=== PATIENT | male | born 1995 | race Two or more races ===

== ENCOUNTER 2021-01-19 19:36 | Emergency (ER) | payer SELFPAY ==
[~2021-01-19] VITALS: Ht 170.2 cm; Wt 65.0 kg
--- NOTE | 2021-01-19 20:26 | PHYS DOC ---
Past Medical History Additional Past Medical Histor: broke right arm in 3rd grade Past Surgical History: No Surgical History General Adult EDM: Chief Complaint: UPPER EXTREMITY INJURY HPI: HPI: Patient is a 25 year old male who presents with a chief complaint of right elbow pain. Prior to arrival patient was at work fell onto his right upper extremity. Patient had sudden onset of pain. Patient's pain is located in his elbow region. Patient states pain occasionally radiates up to the right shoul [place]. On exam there is some swelling noted at his elbow. He has decreased range of motion of supination and pronation flexion and extension at the elbow due to pain and swelling. No injuries noted patient's right shoulder or right wrist. Patient right upper extremity is neurovascularly intact. Review of Systems: Review of Systems: Review of systems: Constitutional symptoms- No fever, no chills. Eyes- No Discharge, No Visual Loss Respiratory symptoms- No shortness of breath, No wheezing, No Dyspnea on Exertion Cardiovascular Systems; No chest pain, No Palpitations, No syncope Gastrointestinal symptoms: NO abdominal pain, no nausea, no vomiting or diarrhea. Genitourinary symptoms: No dysuria. Musculoskeletal symptoms: No back pain Positive extremity pain. NEUROLOGICAL Symptoms: No headache, no generalized weakness; No focal Weakness Skin: No rash. Heart Score: C/O Chest Pain: N/A Risk Factors: Risk Factors: DM, Current or recent (<one month) smoker, HTN, HLP, family history of CAD, obesity. Risk Scores: Score 0 - 3: 2.5% MACE over next 6 weeks - Discharge Home Score 4 - 6: 20.3% MACE over next 6 weeks - Admit for Clinical Observation Score 7 - 10: 72.7% MACE over next 6 weeks - Early Invasive Strategies Allergies: Allergies: Allergies Coded Allergies Type Severity Reaction Last Updated Verified Penicillins Allergy Intermediate 01/19/21 Yes Physical Exam: PE: General: alert, no acute distress. Skin: warm, dry and intact. HENT: bilateral external ears normal, oropharynx moist, nose normal. Head:: Normocephalic, atraumatic. Neck: Trachea midline. Eyes: EOMI, Normal conjunctiva, No drainage CARDIOVASCULAR: Regular rate and rhythm RESPIRATORY: No respiratory distress Back: Full range of motion. Skin: Warm, dry, no erythema, no rash. MUSCULOSKELETAL: Swelling along the right elbow decreased range of motion flexion extension supination pronation tenderness to palpation along the radial head right upper extremity neurovascularly intact no wrist or shoulder injuries GASTROINTESTINAL: Abdomen soft without rebound or guarding. NEUROLOGICAL: Alert and noted to person, place and time. No neurological deficits observed Psychiatric: Cooperative. Normal judgment Current Patient Data: Vital Signs: Vital Signs Date Time Temp Pulse Resp B/P (MAP) Pulse Ox O2 Delivery O2 Flow Rate FiO2 01/19/21 20:04 73 18 125/60 (81) 97 Room Air 01/19/21 19:56 99.3 99.3 EKG: EKG: [] Radiology/Procedures: Radiology/Procedures: [] Impression: HISTORY: Pain after fall 3 views were taken left elbow. There is displacement of anterior fat pad. There is a radial head fracture best seen on the lateral view. Fracture is mildly displaced. The medial epicondyles of the humerus is either a separate ossification center or there is an old injury. IMPRESSION: 1. Right radial head fracture. Electronically signed by: Nathen Kay MD (01/19/2021 8:55 PM) [facility] Course & Med Decision Making: Course & Med Decision Making Pertinent Labs and Imaging studies reviewed. (See chart for details) [] Discussed patient with orthopedics. Patient placed in a posterior OCL and arm placed in a sling. Patient treated in the ER with Motrin. He was discharged home on Ultram. Patient given orthopedic referral. Mary Disclaimer: Mary Disclaimer: This electronic medical record was generated, in whole or in part, using a voice recognition dictation system. Departure Departure Impression: Primary Impression: Radial head fracture, closed Disposition: 01 HOME / SELF CARE / HOMELESS Condition: STABLE Referrals: NO PCP (PCP) LIVE MURRY DO Patient Instructions: Radial Head Fracture Scripts Tramadol Hcl (ULTRAM) 50 Mg Tablet 1 TAB PO PRN Q6HRS PRN for pain MDD 4 Tablet(s) for 7 Days, #28 TAB 0 Refills Prov: GERRY WERNER DO 01/19/21 GERRY WERNER I DO Jan 19, 2021 20:26
[2021-01-19] MEDS ORDERED: IBUPROFEN 200 MG TABLET. PO ONE (20:30)
--- NOTE | 2021-01-19 20:58 | RAD ---
Left elbow 3 views. HISTORY: Pain after fall 3 views were taken left elbow. There is displacement of anterior fat pad. There is a radial head frac ture best seen on the lateral view. Fracture is mildly displaced. The medial epicondyles of the humer us is either a separate ossification center or there is an old injury. IMPRESSION: 1. Right radial head fracture. Electronically signed by: Nathen Kay MD (01/19/2021 8:55 PM) [facility]
[2021-01-19] MEDS ORDERED: TRAM-48 PO (21:07)
[2021-01-19 21:30] VITALS: BP 143/81
== END 2021-01-19 21:32 | disposition home or self-care (01) ==
LOC: ER 19:36
DX: S52.121A Displaced fracture of head of right radius, initial encounter for closed fracture (principal); Z88.0 Allergy status to penicillin; W18.39XA Other fall on same level, initial encounter; Y93.89 Activity, other specified; Y92.89 Other specified places as the place of occurrence of the external cause; Y99.8 Other external cause status
CPT/HCPCS: 29105; 29505; 73080; 99283